=== PATIENT | female | born 1970 | race Caucasian/White ===

== ENCOUNTER 2024-06-29 11:50 | Emergency (ER) | payer MEDICAID ==
[~2024-06-29] VITALS: Ht 162.6 cm; Wt 68.2 kg
[2024-06-29 11:55] VITALS: TEMP 97.7
[2024-06-29] MEDS ORDERED: Meclizine 25 MG TAB PO ONE (12:15)
[2024-06-29 12:17] LABS: BASO # 0.1 K/mm3 (0.0-0.2); BASO % 0.6 % (0.0-2.0); EOS # 0.2 K/mm3 (0.0-0.7); EOS % 1.8 % (0.0-4.0); GRAN # 7.2 K/mm3 (1.4-6.5); GRAN % 61.2 % (42.2-75.2); HEMATOCRIT 41.5 % (37.0-47.0); HEMOGLOBIN 14.5 g/dl (12.5-16.0); LYMPH % 25.8 % (20.0-51.0); MEAN CELL VOLUME 94 fl (80.0-100.0); MEAN CORPUSCULAR HEMOGLOBIN 33 pg (27-31); MEAN CORPUSCULAR HGB CONC 35 g/dl (33.0-37.0); MEAN PLATELET VOLUME 9.7 fl (7.4-10.4); MONO # 1.1 K/mm3 (0.1-0.6); MONO % 9.2 % (1.7-9.3); PLATELET COUNT 356 K/mm3 (130-400); RED BLOOD COUNT 4.44 M/mm3 (4.10-5.30); REDCELL DISTRIBUTION WIDTH-CV 12.2 % (11.5-14.5)
[2024-06-29 12:44] LABS: ALBUMIN 3.4 g/dL (3.5-5.0); BILIRUBIN,TOTAL 0.3 mg/dL (0.2-1.2); CALCIUM 8.1 mg/dL (8.4-10.2); CREATININE, serum 2.7 mg/dL (0.57-1.11); POTASSIUM 3.4 mEq/L (3.5-4.5); TOTAL PROTEIN 6.7 g/dl (6.2-8.1)
[2024-06-29] MEDS ORDERED: ANTIVERT 25MG25 MG PO (13:12)
[2024-06-29 13:17] LABS: C-REACTIVE PROTEIN 0.07 mg/dL (0.00-0.50)
[2024-06-29 13:44] VITALS: BP 171/67; PULSE 62
== END 2024-06-29 13:44 | disposition home or self-care (01) ==
LOC: COL.ER 11:50
PROVIDERS: Emergency Medicine
DX: R42 Dizziness and giddiness (principal); R55 Syncope and collapse; I12.0 Hypertensive chronic kidney disease with stage 5 chronic kidney disease or end stage renal disease; N18.6 End stage renal disease; D72.829 Elevated white blood cell count, unspecified; F17.210 Nicotine dependence, cigarettes, uncomplicated; Z99.2 Dependence on renal dialysis